=== PATIENT | male | born 1960 | race Caucasian/White ===

== ENCOUNTER 2018-01-17 16:51 | Emergency (ER) | payer BC, OTHER ==
[~2018-01-17] VITALS: Wt 90.7 kg
[~2018-01-17 16:51] MED LIST: ASPIRIN EC325 MG PO; CELEBREX200 MG PO; CLARITIN10 MG PO; DAYPRO600 M1 PO; FLEXERIL10 MG PO; HYDROCODONE BIT1 T11 PO; KEFLEX500 MG PO; LEVOFLOXACIN500 MG PO; MEDROL DOSEPAK4 MG PO; MOTRIN800 MG PO; NAPROSYN500 MG PO; NEXIUM20 MG PO; PROVENTIL0.09 MG/AC IH; TESSALON PERLE200 MG PO; VICODIN 5/500 505 MG; VICODIN ES 7501 TAB PO; VISTARIL50 MG PO; Vicodin 5/500 505 MG PO; XANAX0.5 MG PO; ZITHROMAX Z PA250 MG PO; ZOFRAN4 MG PO
[2018-01-17] MEDS ORDERED: CLINDAMYCIN HC300 MG PO (20:42)
== END 2018-01-17 20:40 | disposition home or self-care (01) ==
LOC: ED 16:51
DX: S80.812A Abrasion, left lower leg, initial encounter (principal); S80.811A Abrasion, right lower leg, initial encounter; Z88.1 Allergy status to other antibiotic agents; Z88.2 Allergy status to sulfonamides; Z88.8 Allergy status to other drugs, medicaments and biological substances; Z79.899 Other long term (current) drug therapy; W13.3XXA Fall through floor, initial encounter; Y93.89 Activity, other specified; Y92.89 Other specified places as the place of occurrence of the external cause; Y99.8 Other external cause status

== ENCOUNTER 2021-08-27 11:42 | Inpatient (IN) | payer BC ==
[~2021-08-27] VITALS: Ht 170.1 cm; Wt 76.3 kg
[~2021-08-27 11:42] MED LIST changes: +CLINDAMYCIN HC300 MG PO
[2021-08-27 12:00] VITALS: BP 137/86
[2021-08-27 12:48] LABS: BASO # 0.1 10*3/uL (0.0-0.1); BASO % 0.6 % (0.0-1.0); EOS # 0.3 10*3/uL (0.0-0.4); HEMATOCRIT 42.8 % (42.0-52.0); LYMPH # 2.3 10*3/uL (1.3-4.4); LYMPH % 24.4 % (27.0-41.0); MEAN CELL VOLUME 94.5 fl (80.0-94.0); MEAN CORPUSCULAR HGB 32.2 pg (27.0-31.0); MEAN CORPUSCULAR HGB CONC 34.1 g/dl (33.0-37.0); MEAN PLATELET VOLUME 8.8 fl (9.6-12.3); MONO # 0.5 10*3/uL (0.1-1.0); MONO % 5.7 % (3.0-9.0); NEUT # 6.2 10*3/uL (2.3-7.9); PLATELET COUNT AUTOMATED 314 10*3/uL (130-400); RED BLOOD COUNT 4.53 10*6/uL (4.50-5.90); RED CELL DISTRI WIDTH 11.7 % (0-14.5); WHITE BLOOD COUNT 9.5 10*3/uL (4.8-10.8)
[2021-08-27 13:04] LABS: ALKALINE PHOSPHATASE 77 U/L (45-117); BUN 10 mg/dl (7-24); CHLORIDE 107 mmol/L (98-107); CREATININE 0.68 mg/dL (0.70-1.30); POTASSIUM 4.2 mmol/L (3.5-5.1); SGOT/AST 16 IU/L (3-35); SGPT/ALT 18 U/L (12-78); SODIUM 139 mmol/L (136-145); TOTAL PROTEIN 7.1 gm/dL (6.4-8.2)
[2021-08-27 13:09] LABS: ETHYL ALCOHOL < 3.0 mg/dl (<3)
[2021-08-27 14:57] LABS: BILIRUBIN Negative (Negative); BLOOD Negative (Negative); CLARITY Clear (Clear); COLOR Yellow (Yellow); GLUCOSE Negative (Negative); KETONE Negative (Negative); LEUKO ESTERASE Negative (Negative); NITRITE Negative (Negative); PH 6.5 (4.5-8.0); SPECIFIC GRAVITY 1.015 (1.001-1.030)
[2021-08-27 15:07] LABS: URINE AMPHETAMINES < 1000 (1000ng/ml); URINE BARBITURATES < 200 (200ng/ml); URINE BENZODIAZEPINES > 200 (200ng/ml); URINE CANNABINOIDS (THC) > 50 (50ng/ml); URINE COCAINE < 300 (300ng/ml); URINE METHADONE < 300 (300ng/ml); URINE OPIATES < 300 (300ng/ml)
[2021-08-27 15:08] LABS: URINE PHENCYCLIDINE < 25 (25ng/ml)
[2021-08-27 15:11] LABS: BACTERIA 1+; EPITHELIAL CELLS 0-2; MUCOUS 1+; WBC 0-2 wbc/hpf (0-5)
[2021-08-27 16:00] VITALS: BP 112/67
[2021-08-27] MEDS ORDERED: ESOMEPRAZOLE MA40 M1 PO (16:51)
[2021-08-27] MEDS ORDERED: XANAX1 MG PO (16:51)
[2021-08-27 20:00] VITALS: BP 121/87
[2021-08-28] VITALS: BP 118/65
[2021-08-28 08:00] VITALS: BP 120/90
[2021-08-28 12:00] VITALS: BP 120/100
[2021-08-28 16:00] VITALS: BP 116/77
[2021-08-28 20:00] VITALS: BP 96/58
[2021-08-29] VITALS: BP 119/60
[2021-08-29 08:00] VITALS: BP 119/64
[2021-08-29 12:00] VITALS: BP 114/74; BP 193/92
[2021-08-29 16:00] VITALS: BP 132/79
[2021-08-29 20:00] VITALS: BP 121/76
[2021-08-30] VITALS: BP 92/59
[2021-08-30 08:00] VITALS: BP 109/84
[2021-08-30] MEDS ORDERED: ONDANSETRON HYDR4 M1 PO ×3 (10:38→12:55)
[2021-08-30] MEDS ORDERED: Carafate1 GM PO (12:54)
== END 2021-08-30 13:35 | disposition home or self-care (01) | DRG 897 ==
LOC: 4E 11:42
PROVIDERS: Internal Medicine; ADMIT Internal Medicine; ATTEND Internal Medicine
DX: F11.23 Opioid dependence with withdrawal (principal); F41.9 Anxiety disorder, unspecified; K21.9 Gastro-esophageal reflux disease without esophagitis; R73.9 Hyperglycemia, unspecified; F17.210 Nicotine dependence, cigarettes, uncomplicated; Z71.6 Tobacco abuse counseling; Z88.2 Allergy status to sulfonamides; Z88.8 Allergy status to other drugs, medicaments and biological substances; Z79.899 Other long term (current) drug therapy

== ENCOUNTER 2021-09-29 10:04 | Inpatient (IN) | payer BC ==
[~2021-09-29] VITALS: Ht 170.1 cm; Wt 76.3 kg
[~2021-09-29 10:04] MED LIST changes: +Carafate1 GM PO; +ESOMEPRAZOLE MA40 M1 PO; +ONDANSETRON HYDR4 M1 PO; +XANAX1 MG PO
[2021-09-29 12:00] VITALS: BP 141/90
[2021-09-29 16:00] VITALS: BP 127/65
[2021-09-29 20:00] VITALS: BP 135/81
[2021-09-30] VITALS: BP 125/65
[2021-09-30 06:44] LABS: ALKALINE PHOSPHATASE 69 U/L (45-117); BUN 11 mg/dl (7-24); CHLORIDE 108 mmol/L (98-107); CREATININE 0.74 mg/dL (0.70-1.30); FREE T4 1.02 ng/dl (0.76-1.46); SGOT/AST 20 IU/L (3-35); SGPT/ALT 21 U/L (12-78); SODIUM 139 mmol/L (136-145); TOTAL PROTEIN 7.1 gm/dL (6.4-8.2)
[2021-09-30 06:49] LABS: THYROID STIM HORMONE (HS) 0.254 uIU/ml (0.358-4.75)
[2021-09-30 06:50] LABS: ACT PARTIAL THROMBO TIME 27.3 SECONDS (20.0-32.1)
[2021-09-30 07:03] LABS: BASO # 0.1 10*3/uL (0.0-0.1); BASO % 0.5 % (0.0-1.0); EOS # 0.3 10*3/uL (0.0-0.4); EOS % 2.1 % (1.0-4.0); LYMPH # 4.4 10*3/uL (1.3-4.4); LYMPH % 36.8 % (27.0-41.0); MEAN CELL VOLUME 94.7 fl (80.0-94.0); MEAN CORPUSCULAR HGB 32.6 pg (27.0-31.0); MEAN CORPUSCULAR HGB CONC 34.4 g/dl (33.0-37.0); MEAN PLATELET VOLUME 9.7 fl (9.6-12.3); MONO # 0.8 10*3/uL (0.1-1.0); MONO % 6.4 % (3.0-9.0); NEUT # 6.5 10*3/uL (2.3-7.9); PLATELET COUNT AUTOMATED 365 10*3/uL (130-400); RED BLOOD COUNT 4.75 10*6/uL (4.50-5.90); RED CELL DISTRI WIDTH 12.4 % (0-14.5)
[2021-09-30 08:00] VITALS: BP 141/86
[2021-09-30 12:00] VITALS: BP 130/68
[2021-09-30 16:00] VITALS: BP 137/83
[2021-09-30 20:00] VITALS: BP 139/71
[2021-10-01] VITALS: BP 159/82
[2021-10-01 08:00] VITALS: BP 140/69
[2021-10-01 12:00] VITALS: BP 112/73
[2021-10-01 13:50] LABS: BILIRUBIN Negative (Negative); BLOOD Negative (Negative); CLARITY Clear (Clear); COLOR Orange (Yellow); GLUCOSE Negative (Negative); KETONE Negative (Negative); LEUKO ESTERASE Negative (Negative); NITRITE Negative (Negative); UROBILINOGEN 0.2 E.U./dl (0.0-1.0)
[2021-10-01 14:17] LABS: BACTERIA TRACE; RBC 0-2 rbc/hpf (0-2)
[2021-10-01 16:00] VITALS: BP 121/67
[2021-10-01 20:00] VITALS: BP 111/66
[2021-10-02] VITALS: BP 139/86
[2021-10-02 08:00] VITALS: BP 136/87
[2021-10-02] MEDS ORDERED: ONDANSETRON HYDR4 M1 PO (11:57)
== END 2021-10-02 12:25 | disposition home or self-care (01) | DRG 897 ==
LOC: 4E 10:04
PROVIDERS: Internal Medicine; ADMIT Internal Medicine; ATTEND Internal Medicine
DX: F11.23 Opioid dependence with withdrawal (principal); F17.210 Nicotine dependence, cigarettes, uncomplicated; F41.9 Anxiety disorder, unspecified; K21.9 Gastro-esophageal reflux disease without esophagitis; Z88.2 Allergy status to sulfonamides; Z71.6 Tobacco abuse counseling; Z88.8 Allergy status to other drugs, medicaments and biological substances; Z79.899 Other long term (current) drug therapy

== ENCOUNTER 2021-12-23 21:34 | Inpatient (IN) | payer BC ==
[~2021-12-23] VITALS: Ht 172.7 cm; Wt 84.6 kg
[2021-12-23 21:35] VITALS: BP 175/96
[2021-12-23 22:05] LABS: BASO # 0.1 10*3/uL (0.0-0.1); BASO % 0.4 % (0.0-1.0); EOS # 0.4 10*3/uL (0.0-0.4); HEMATOCRIT 43.1 % (42.0-52.0); LYMPH # 3.7 10*3/uL (1.3-4.4); LYMPH % 25.4 % (27.0-41.0); MEAN CELL VOLUME 98.2 fl (80.0-94.0); MEAN CORPUSCULAR HGB 33.3 pg (27.0-31.0); MEAN CORPUSCULAR HGB CONC 33.9 g/dl (33.0-37.0); MEAN PLATELET VOLUME 8.6 fl (9.6-12.3); MONO % 7.1 % (3.0-9.0); NEUT # 9.1 10*3/uL (2.3-7.9); NEUT % 63.1 % (47.0-73.0); PLATELET COUNT AUTOMATED 278 10*3/uL (130-400); RED BLOOD COUNT 4.39 10*6/uL (4.50-5.90); RED CELL DISTRI WIDTH 12.2 % (0-14.5); WHITE BLOOD COUNT 14.5 10*3/uL (4.8-10.8)
[2021-12-23 22:17] LABS: ACT PARTIAL THROMBO TIME 23.7 SECONDS (20.0-32.1)
[2021-12-23 22:20] LABS: ALKALINE PHOSPHATASE 93 U/L (45-117); BUN 17 mg/dl (7-24); CHLORIDE 102 mmol/L (98-107); CREATININE 1.14 mg/dL (0.70-1.30); POTASSIUM 3.7 mmol/L (3.5-5.1); SGOT/AST 28 IU/L (3-35); SGPT/ALT 34 U/L (12-78); SODIUM 139 mmol/L (136-145)
[2021-12-23 23:42] LABS: URINE AMPHETAMINES < 1000 (1000ng/ml); URINE BARBITURATES < 200 (200ng/ml); URINE BENZODIAZEPINES > 200 (200ng/ml); URINE CANNABINOIDS (THC) < 50 (50ng/ml); URINE COCAINE < 300 (300ng/ml); URINE METHADONE < 300 (300ng/ml); URINE OPIATES < 300 (300ng/ml)
[2021-12-23 23:43] LABS: URINE PHENCYCLIDINE < 25 (25ng/ml)
[2021-12-24] VITALS (7 sets, daily range): BP systolic 114–164; BP diastolic 63–82
[2021-12-24 03:40] LABS: BASO # 0.1 10*3/uL (0.0-0.1); BASO % 0.4 % (0.0-1.0); EOS # 0.2 10*3/uL (0.0-0.4); EOS % 1.2 % (1.0-4.0); HEMATOCRIT 44.3 % (42.0-52.0); LYMPH # 3.2 10*3/uL (1.3-4.4); LYMPH % 22.3 % (27.0-41.0); MEAN CELL VOLUME 98.7 fl (80.0-94.0); MEAN CORPUSCULAR HGB 32.7 pg (27.0-31.0); MEAN CORPUSCULAR HGB CONC 33.2 g/dl (33.0-37.0); MEAN PLATELET VOLUME 8.8 fl (9.6-12.3); MONO # 1.3 10*3/uL (0.1-1.0); MONO % 9.2 % (3.0-9.0); NEUT # 9.6 10*3/uL (2.3-7.9); NEUT % 66.3 % (47.0-73.0); PLATELET COUNT AUTOMATED 272 10*3/uL (130-400); RED BLOOD COUNT 4.49 10*6/uL (4.50-5.90); RED CELL DISTRI WIDTH 12.3 % (0-14.5); WHITE BLOOD COUNT 14.5 10*3/uL (4.8-10.8)
[2021-12-24 03:57] LABS: ALKALINE PHOSPHATASE 90 U/L (45-117); BUN 16 mg/dl (7-24); CHLORIDE 103 mmol/L (98-107); CHOLESTEROL 180 mg/dL (<200); CREATININE 0.96 mg/dL (0.70-1.30); LDL CHOLESTEROL 114 mg/dL (9-159); POTASSIUM 4.2 mmol/L (3.5-5.1); SGOT/AST 27 IU/L (3-35); SGPT/ALT 33 U/L (12-78); SODIUM 137 mmol/L (136-145); TRIGLYCERIDES 93 mg/dl (<150)
[2021-12-24 03:58] LABS: FREE T4 1.36 ng/dl (0.76-1.46)
[2021-12-25] VITALS: BP 125/72
[2021-12-25 06:24] LABS: BASO # 0.1 10*3/uL (0.0-0.1); BASO % 0.5 % (0.0-1.0); EOS # 0.4 10*3/uL (0.0-0.4); EOS % 4.1 % (1.0-4.0); HEMATOCRIT 44.4 % (42.0-52.0); LYMPH # 3.3 10*3/uL (1.3-4.4); LYMPH % 31.1 % (27.0-41.0); MEAN CELL VOLUME 101.1 fl (80.0-94.0); MEAN CORPUSCULAR HGB 33.5 pg (27.0-31.0); MEAN CORPUSCULAR HGB CONC 33.1 g/dl (33.0-37.0); MEAN PLATELET VOLUME 9.6 fl (9.6-12.3); NEUT # 5.8 10*3/uL (2.3-7.9); NEUT % 54.9 % (47.0-73.0); PLATELET COUNT AUTOMATED 281 10*3/uL (130-400); RED BLOOD COUNT 4.39 10*6/uL (4.50-5.90); RED CELL DISTRI WIDTH 12.4 % (0-14.5); WHITE BLOOD COUNT 10.5 10*3/uL (4.8-10.8)
[2021-12-25 06:28] LABS: BUN 18 mg/dl (7-24); CHLORIDE 106 mmol/L (98-107); CREATININE 0.76 mg/dL (0.70-1.30); POTASSIUM 4.1 mmol/L (3.5-5.1); SODIUM 138 mmol/L (136-145)
[2021-12-25 08:00] VITALS: BP 104/58
== END 2021-12-25 11:15 | disposition home or self-care (01) | DRG 391 ==
LOC: ED 21:34 → EDHOLD 12-24 02:46 → 4E 12-24 02:46
PROVIDERS: Emergency Medicine; Family Medicine; ADMIT Internal Medicine; ATTEND Internal Medicine
DX: K21.9 Gastro-esophageal reflux disease without esophagitis (principal); I21.4 Non-ST elevation (NSTEMI) myocardial infarction; F11.23 Opioid dependence with withdrawal; E87.3 Alkalosis; F13.20 Sedative, hypnotic or anxiolytic dependence, uncomplicated; T40.2X1A Poisoning by other opioids, accidental (unintentional), initial encounter; F41.9 Anxiety disorder, unspecified; K25.7 Chronic gastric ulcer without hemorrhage or perforation; F17.210 Nicotine dependence, cigarettes, uncomplicated; F32.9 Major depressive disorder, single episode, unspecified; I10 Essential (primary) hypertension; D72.829 Elevated white blood cell count, unspecified; R73.9 Hyperglycemia, unspecified; F32.A Depression, unspecified; Y92.89 Other specified places as the place of occurrence of the external cause; Z88.2 Allergy status to sulfonamides; Z88.8 Allergy status to other drugs, medicaments and biological substances

== ENCOUNTER 2022-08-01 14:32 | Emergency (ER) | payer BC ==
[~2022-08-01] VITALS: Ht 170.1 cm; Wt 79.4 kg
[2022-08-01 15:26] LABS: BASO % 0.3 % (0.0-1.0); EOS % 0.2 % (1.0-4.0); HEMATOCRIT 49.7 % (42.0-52.0); LYMPH # 1.4 10*3/uL (1.3-4.4); MEAN CELL VOLUME 95.2 fl (80.0-94.0); MEAN CORPUSCULAR HGB 32.6 pg (27.0-31.0); MEAN CORPUSCULAR HGB CONC 34.2 g/dl (33.0-37.0); MEAN PLATELET VOLUME 9.2 fl (9.6-12.3); MONO # 0.6 10*3/uL (0.1-1.0); MONO % 5.1 % (3.0-9.0); NEUT # 10.3 10*3/uL (2.3-7.9); NEUT % 83.2 % (47.0-73.0); PLATELET COUNT AUTOMATED 350 10*3/uL (130-400); RED BLOOD COUNT 5.22 10*6/uL (4.50-5.90); WHITE BLOOD COUNT 12.4 10*3/uL (4.8-10.8)
[2022-08-01 15:44] LABS: ALKALINE PHOSPHATASE 86 U/L (46-116); BUN 15 mg/dl (9-23); CHLORIDE 100 mmol/L (98-107); POTASSIUM 3.7 mmol/L (3.4-5.1); SGPT/ALT 26 U/L (10-49); TOTAL PROTEIN 7.6 gm/dL (6.0-8.0)
[2022-08-01] MEDS ORDERED: REGLAN10 M1 PO (16:05)
[2022-08-01] MEDS ORDERED: 'CLONIDINE0.1 MG PO (16:05)
== END 2022-08-01 16:26 | disposition home or self-care (01) ==
LOC: ED 14:32
PROVIDERS: Internal Medicine
DX: F11.23 Opioid dependence with withdrawal (principal); R11.2 Nausea with vomiting, unspecified; M79.10 Myalgia, unspecified site; Z88.2 Allergy status to sulfonamides; Z88.8 Allergy status to other drugs, medicaments and biological substances; Z98.890 Other specified postprocedural states

== ENCOUNTER 2022-08-20 10:17 | Inpatient (IN) | payer BC ==
[~2022-08-20] VITALS: Ht 170.2 cm; Wt 84.0 kg
[~2022-08-20 10:17] MED LIST changes: +'CLONIDINE0.1 MG PO; +REGLAN10 M1 PO
[2022-08-20 10:33] VITALS: BP 156/92
[2022-08-20] MEDS ORDERED: NEXIUM40 MG PO (10:47)
[2022-08-20 11:33] LABS: BASO % 0.4 % (0.0-1.0); EOS # 0.2 10*3/uL (0.0-0.4); EOS % 2.1 % (1.0-4.0); HEMATOCRIT 47.8 % (42.0-52.0); LYMPH # 1.5 10*3/uL (1.3-4.4); LYMPH % 14.3 % (27.0-41.0); MEAN CELL VOLUME 93.7 fl (80.0-94.0); MEAN CORPUSCULAR HGB 32.5 pg (27.0-31.0); MEAN CORPUSCULAR HGB CONC 34.7 g/dl (33.0-37.0); MEAN PLATELET VOLUME 8.7 fl (9.6-12.3); MONO # 0.5 10*3/uL (0.1-1.0); MONO % 4.6 % (3.0-9.0); NEUT % 78.3 % (47.0-73.0); PLATELET COUNT AUTOMATED 289 10*3/uL (130-400); RED CELL DISTRI WIDTH 11.9 % (0-14.5); WHITE BLOOD COUNT 10.2 10*3/uL (4.8-10.8)
[2022-08-20 11:49] LABS: ALKALINE PHOSPHATASE 94 U/L (46-116); BUN 8 mg/dl (9-23); CHLORIDE 99 mmol/L (98-107); POTASSIUM 4.2 mmol/L (3.4-5.1); SGPT/ALT 22 U/L (10-49); TOTAL PROTEIN 7.5 gm/dL (6.0-8.0)
[2022-08-20 11:50] LABS: ETHYL ALCOHOL < 3.0 mg/dl (<3)
[2022-08-20 12:00] VITALS: BP 117/77
[2022-08-20 16:00] VITALS: BP 153/75
[2022-08-20 20:00] VITALS: BP 152/61
[2022-08-21] VITALS: BP 143/83
[2022-08-21 08:00] VITALS: BP 129/75
[2022-08-21 12:00] VITALS: BP 107/70
[2022-08-21 16:00] VITALS: BP 133/71
[2022-08-21 20:00] VITALS: BP 100/63
[2022-08-21 22:08] LABS: BILIRUBIN Negative (Negative); BLOOD Negative (Negative); CLARITY Clear (Clear); COLOR Yellow (Yellow); GLUCOSE Negative (Negative); KETONE Negative (Negative); LEUKO ESTERASE Negative (Negative); NITRITE Negative (Negative); SPECIFIC GRAVITY 1.025 (1.001-1.030)
[2022-08-21 22:13] LABS: URINE AMPHETAMINES Negative (1000ng/ml); URINE BARBITURATES Negative (200ng/ml); URINE BENZODIAZEPINES Positive (200ng/ml); URINE CANNABINOIDS (THC) Positive (50ng/ml); URINE COCAINE Negative (300ng/ml); URINE METHADONE Negative (300ng/ml); URINE OPIATES Negative (300ng/ml); URINE PHENCYCLIDINE Negative (25ng/ml)
[2022-08-21 22:15] LABS: MUCOUS 1+; RBC 0-2 rbc/hpf (0-2); WBC 0-2 wbc/hpf (0-5)
[2022-08-22] VITALS: BP 109/77
[2022-08-22 08:00] VITALS: BP 91/65
[2022-08-22 12:00] VITALS: BP 105/74
[2022-08-22 16:00] VITALS: BP 136/82
[2022-08-22 20:00] VITALS: BP 125/92; BP 136/78
[2022-08-23] VITALS: BP 104/61
[2022-08-23 08:00] VITALS: BP 103/73
[2022-08-23] MEDS ORDERED: ONDANSETRON HYDR4 M1 PO (08:48)
[2022-08-23] MEDS ORDERED: NATURE'S BLEND F1 MG PO (08:49)
[2022-08-23] MEDS ORDERED: THERA TABLET400 MCG PO (08:49)
[2022-08-23] MEDS ORDERED: VITAMIN B-1100 M1 PO (08:49)
== END 2022-08-23 10:25 | disposition home or self-care (01) | DRG 897 ==
LOC: 5E 10:17
PROVIDERS: Internal Medicine; ADMIT Internal Medicine; ATTEND Internal Medicine
DX: F11.23 Opioid dependence with withdrawal (principal); R73.9 Hyperglycemia, unspecified; F41.9 Anxiety disorder, unspecified; F32.A Depression, unspecified; F17.210 Nicotine dependence, cigarettes, uncomplicated; I10 Essential (primary) hypertension; K21.9 Gastro-esophageal reflux disease without esophagitis; Z87.898 Personal history of other specified conditions; Z71.6 Tobacco abuse counseling; Z88.2 Allergy status to sulfonamides; Z88.8 Allergy status to other drugs, medicaments and biological substances; Z79.899 Other long term (current) drug therapy

== ENCOUNTER 2022-11-19 10:54 | Inpatient (IN) | payer BC ==
[~2022-11-19] VITALS: Ht 170 cm; Wt 77.6 kg
[~2022-11-19 10:54] MED LIST changes: +NATURE'S BLEND F1 MG PO; +NEXIUM40 MG PO; +THERA TABLET400 MCG PO; +VITAMIN B-1100 M1 PO
[2022-11-19 11:23] VITALS: BP 120/73
[2022-11-19] MEDS ORDERED: 'XANAX1 MG PO (11:27)
[2022-11-19] MEDS ORDERED: DULOXETINE HCL60 MG PO (11:27)
[2022-11-19 12:01] LABS: BASO % 0.8 % (0.0-1.0); EOS # 0.5 10*3/uL (0.0-0.4); EOS % 10.2 % (1.0-4.0); HEMATOCRIT 44.7 % (42.0-52.0); LYMPH # 1.8 10*3/uL (1.3-4.4); LYMPH % 37.6 % (27.0-41.0); MEAN CELL VOLUME 96.8 fl (80.0-94.0); MEAN CORPUSCULAR HGB 33.3 pg (27.0-31.0); MEAN CORPUSCULAR HGB CONC 34.5 g/dl (33.0-37.0); MEAN PLATELET VOLUME 9.6 fl (9.6-12.3); MONO # 0.6 10*3/uL (0.1-1.0); MONO % 11.4 % (3.0-9.0); NEUT % 39.8 % (47.0-73.0); PLATELET COUNT AUTOMATED 194 10*3/uL (130-400); RED BLOOD COUNT 4.62 10*6/uL (4.50-5.90); WHITE BLOOD COUNT 4.9 10*3/uL (4.8-10.8)
[2022-11-19 12:22] LABS: ALKALINE PHOSPHATASE 73 U/L (46-116); BUN 15 mg/dl (9-23); CHLORIDE 103 mmol/L (98-107); LIPASE 20 U/L (12-53); POTASSIUM 3.7 mmol/L (3.4-5.1); SGPT/ALT 16 U/L (10-49)
[2022-11-19 14:11] LABS: BILIRUBIN Negative (Negative); BLOOD Negative (Negative); CLARITY Clear (Clear); COLOR Dark Yellow (Yellow); GLUCOSE Negative (Negative); KETONE Trace (Negative); LEUKO ESTERASE Trace (Negative); NITRITE Negative (Negative); PH 5.5 (4.5-8.0); SPECIFIC GRAVITY >= 1.030 (1.001-1.030)
[2022-11-19 14:18] LABS: URINE AMPHETAMINES Negative (1000ng/ml); URINE BARBITURATES Negative (200ng/ml); URINE BENZODIAZEPINES Positive (200ng/ml); URINE CANNABINOIDS (THC) Negative (50ng/ml); URINE COCAINE Negative (300ng/ml); URINE METHADONE Negative (300ng/ml); URINE OPIATES Negative (300ng/ml); URINE PHENCYCLIDINE Negative (25ng/ml)
[2022-11-19 14:27] LABS: BACTERIA 1+; MUCOUS 2+
[2022-11-19 16:00] VITALS: BP 129/68
[2022-11-19 16:42] VITALS: BP 133/78
[2022-11-19 17:10] VITALS: BP 129/68
[2022-11-19 20:00] VITALS: BP 100/57
[2022-11-20] VITALS: BP 105/54
[2022-11-20 04:27] LABS: BASO % 0.7 % (0.0-1.0); EOS # 0.6 10*3/uL (0.0-0.4); EOS % 10.1 % (1.0-4.0); HEMATOCRIT 43.5 % (42.0-52.0); LYMPH # 2.8 10*3/uL (1.3-4.4); LYMPH % 46.3 % (27.0-41.0); MEAN CELL VOLUME 97.3 fl (80.0-94.0); MEAN CORPUSCULAR HGB 32.9 pg (27.0-31.0); MEAN CORPUSCULAR HGB CONC 33.8 g/dl (33.0-37.0); MEAN PLATELET VOLUME 9.6 fl (9.6-12.3); MONO # 0.6 10*3/uL (0.1-1.0); MONO % 9.6 % (3.0-9.0); NEUT % 33.1 % (47.0-73.0); PLATELET COUNT AUTOMATED 225 10*3/uL (130-400); RED BLOOD COUNT 4.47 10*6/uL (4.50-5.90); RED CELL DISTRI WIDTH 11.9 % (0-14.5); WHITE BLOOD COUNT 5.9 10*3/uL (4.8-10.8)
[2022-11-20 04:55] LABS: BUN 16 mg/dl (9-23); CHLORIDE 105 mmol/L (98-107); CHOLESTEROL 154 mg/dL (<200); FREE T4 1.19 ng/dl (0.89-1.76); LDL CHOLESTEROL 103 mg/dL (9-159); POTASSIUM 4.1 mmol/L (3.4-5.1); THYROID STIM HORMONE (HS) 0.255 uIU/ml (0.550-4.780); TRIGLYCERIDES 111 mg/dl (<150)
[2022-11-20 06:19] LABS: VITAMIN D, 25-HYDROXY 37.9 ng/mL (30-100)
[2022-11-20 08:00] VITALS: BP 139/59
[2022-11-20 12:00] VITALS: BP 133/76
[2022-11-20 16:00] VITALS: BP 123/59
[2022-11-20 20:00] VITALS: BP 145/80
[2022-11-21] VITALS: BP 126/45
[2022-11-21 08:00] VITALS: BP 146/96
[2022-11-21 12:00] VITALS: BP 160/83
[2022-11-21 16:00] VITALS: BP 140/74
[2022-11-21 20:00] VITALS: BP 158/78
[2022-11-22] VITALS: BP 133/56
[2022-11-22 06:48] LABS: BASO # 0.1 10*3/uL (0.0-0.1); BASO % 0.6 % (0.0-1.0); EOS # 0.2 10*3/uL (0.0-0.4); EOS % 2.2 % (1.0-4.0); HEMATOCRIT 45.2 % (42.0-52.0); LYMPH # 3.6 10*3/uL (1.3-4.4); LYMPH % 35.4 % (27.0-41.0); MEAN CORPUSCULAR HGB 32.4 pg (27.0-31.0); MEAN CORPUSCULAR HGB CONC 34.1 g/dl (33.0-37.0); MEAN PLATELET VOLUME 8.9 fl (9.6-12.3); MONO # 0.6 10*3/uL (0.1-1.0); MONO % 6.3 % (3.0-9.0); NEUT # 5.6 10*3/uL (2.3-7.9); NEUT % 54.8 % (47.0-73.0); PLATELET COUNT AUTOMATED 322 10*3/uL (130-400); RED BLOOD COUNT 4.76 10*6/uL (4.50-5.90); RED CELL DISTRI WIDTH 11.6 % (0-14.5); WHITE BLOOD COUNT 10.2 10*3/uL (4.8-10.8)
[2022-11-22 07:25] LABS: BUN 12 mg/dl (9-23); CHLORIDE 102 mmol/L (98-107); POTASSIUM 3.6 mmol/L (3.4-5.1)
[2022-11-22 08:00] VITALS: BP 147/73
[2022-11-22 12:00] VITALS: BP 146/73
[2022-11-22] MEDS ORDERED: ONDANSETRON4 MG SL (13:59)
== END 2022-11-22 14:15 | disposition home or self-care (01) | DRG 897 ==
LOC: ED 10:54 → EDHOLD 11:52 → 5E 11:52
PROVIDERS: Emergency Medicine; Student in an Organized Health Care Education/Training Program; ADMIT Student in an Organized Health Care Education/Training Program; ATTEND Student in an Organized Health Care Education/Training Program
DX: F11.23 Opioid dependence with withdrawal (principal); F41.9 Anxiety disorder, unspecified; F32.A Depression, unspecified; I10 Essential (primary) hypertension; F17.210 Nicotine dependence, cigarettes, uncomplicated; K21.9 Gastro-esophageal reflux disease without esophagitis; R73.9 Hyperglycemia, unspecified; Z71.6 Tobacco abuse counseling; Z88.2 Allergy status to sulfonamides; Z88.8 Allergy status to other drugs, medicaments and biological substances

== ENCOUNTER 2022-12-24 09:56 | Inpatient (IN) | payer BC ==
[~2022-12-24] VITALS: Ht 172.7 cm; Wt 75.1 kg
[~2022-12-24 09:56] MED LIST changes: +'XANAX1 MG PO; +DULOXETINE HCL60 MG PO; +ONDANSETRON4 MG SL
[2022-12-24 10:05] VITALS: BP 139/67
[2022-12-24 12:00] VITALS: BP 135/55
[2022-12-24 12:25] LABS: BASO # 0.1 10*3/uL (0.0-0.1); BASO % 0.5 % (0.0-1.0); EOS # 0.5 10*3/uL (0.0-0.4); EOS % 4.5 % (1.0-4.0); HEMATOCRIT 46.1 % (42.0-52.0); LYMPH # 2.7 10*3/uL (1.3-4.4); LYMPH % 26.3 % (27.0-41.0); MEAN CELL VOLUME 95.4 fl (80.0-94.0); MEAN CORPUSCULAR HGB 32.3 pg (27.0-31.0); MEAN CORPUSCULAR HGB CONC 33.8 g/dl (33.0-37.0); MONO # 0.7 10*3/uL (0.1-1.0); MONO % 6.3 % (3.0-9.0); NEUT # 6.5 10*3/uL (2.3-7.9); NEUT % 62.2 % (47.0-73.0); PLATELET COUNT AUTOMATED 280 10*3/uL (130-400); RED BLOOD COUNT 4.83 10*6/uL (4.50-5.90); RED CELL DISTRI WIDTH 11.8 % (0-14.5); WHITE BLOOD COUNT 10.4 10*3/uL (4.8-10.8)
[2022-12-24 12:34] LABS: INTERNATIONAL NORM RATIO 1.1 (2.0-3.5)
[2022-12-24 13:16] LABS: ALKALINE PHOSPHATASE 72 U/L (46-116); BUN 11 mg/dl (9-23); CHLORIDE 105 mmol/L (98-107); POTASSIUM 3.9 mmol/L (3.4-5.1); SGPT/ALT 12 U/L (10-49); TOTAL PROTEIN 6.4 gm/dL (6.0-8.0)
[2022-12-24 13:21] LABS: ETHYL ALCOHOL < 3.0 mg/dl (<3)
[2022-12-24 14:01] LABS: URINE AMPHETAMINES Negative (1000ng/ml); URINE BARBITURATES Negative (200ng/ml); URINE BENZODIAZEPINES Positive (200ng/ml); URINE CANNABINOIDS (THC) Negative (50ng/ml); URINE COCAINE Negative (300ng/ml); URINE METHADONE Negative (300ng/ml); URINE OPIATES Negative (300ng/ml); URINE PHENCYCLIDINE Negative (25ng/ml)
[2022-12-24 16:00] VITALS: BP 142/68
[2022-12-24 20:00] VITALS: BP 146/78
[2022-12-25] VITALS: BP 117/57
[2022-12-25 08:00] VITALS: BP 156/81
[2022-12-25 12:00] VITALS: BP 123/58
[2022-12-25 16:00] VITALS: BP 123/70
[2022-12-25 20:00] VITALS: BP 111/53
[2022-12-26] VITALS: BP 143/76
[2022-12-26 08:00] VITALS: BP 124/51
[2022-12-26 12:00] VITALS: BP 119/65
[2022-12-26 16:00] VITALS: BP 139/66
[2022-12-26 20:00] VITALS: BP 127/64
[2022-12-27] VITALS: BP 145/83
[2022-12-27 06:29] LABS: BUN 11 mg/dl (9-23); CHLORIDE 104 mmol/L (98-107)
[2022-12-27 06:34] LABS: BASO # 0.1 10*3/uL (0.0-0.1); BASO % 0.6 % (0.0-1.0); EOS # 0.3 10*3/uL (0.0-0.4); EOS % 2.8 % (1.0-4.0); HEMATOCRIT 46.3 % (42.0-52.0); LYMPH # 4.2 10*3/uL (1.3-4.4); LYMPH % 39.5 % (27.0-41.0); MEAN CELL VOLUME 95.7 fl (80.0-94.0); MEAN CORPUSCULAR HGB 32.4 pg (27.0-31.0); MEAN CORPUSCULAR HGB CONC 33.9 g/dl (33.0-37.0); MEAN PLATELET VOLUME 9.9 fl (9.6-12.3); MONO # 0.7 10*3/uL (0.1-1.0); MONO % 6.2 % (3.0-9.0); NEUT # 5.4 10*3/uL (2.3-7.9); NEUT % 50.7 % (47.0-73.0); PLATELET COUNT AUTOMATED 300 10*3/uL (130-400); RED BLOOD COUNT 4.84 10*6/uL (4.50-5.90); RED CELL DISTRI WIDTH 11.9 % (0-14.5); WHITE BLOOD COUNT 10.6 10*3/uL (4.8-10.8)
[2022-12-27 08:00] VITALS: BP 124/64
[2022-12-27 12:00] VITALS: BP 133/77
== END 2022-12-27 13:00 | disposition home or self-care (01) | DRG 897 ==
LOC: 4E 09:56
PROVIDERS: Internal Medicine; Student in an Organized Health Care Education/Training Program; ADMIT Internal Medicine; ATTEND Internal Medicine
DX: F11.23 Opioid dependence with withdrawal (principal); K21.9 Gastro-esophageal reflux disease without esophagitis; F41.9 Anxiety disorder, unspecified; G47.00 Insomnia, unspecified; F32.A Depression, unspecified; F17.210 Nicotine dependence, cigarettes, uncomplicated; I10 Essential (primary) hypertension; Z71.6 Tobacco abuse counseling; Z88.2 Allergy status to sulfonamides; Z88.8 Allergy status to other drugs, medicaments and biological substances; Z79.899 Other long term (current) drug therapy

== ENCOUNTER → 2023-06-27 | Outpatient (CLI) | payer BC ==
[~2023-06-27] MED LIST changes: +DOXYCYCLINE HY100 M3 PO; +MUCINEX1200 M1 PO; +PREDNISONE10 MG PO; +TAMSULOSIN HCL0.4 MG PO
== END | disposition home or self-care (01) ==
LOC: RAD 14:56
PROVIDERS: ATTEND Nurse Practitioner Family
DX: N20.0 Calculus of kidney (principal)